=== PATIENT | male | born 1975 | race Caucasian/White ===

== ENCOUNTER 2016-09-10 09:59 | Emergency (ER) | payer OTHER ==
[~2016-09-10] VITALS: Ht 175.3 cm; Wt 90.1 kg
[2016-09-10 10:00] VITALS: BP 125/62; PULSE 64; RESP 20; TEMP 98.9; O2SAT 99
[2016-09-10] MEDS ORDERED: ROSU10 PO (10:27)
[2016-09-10] MEDS ORDERED: SODIUM CHLORIDE 0.9% FLUSH 10 ML FLUSH IVF PRN (11:15)
--- NOTE | 2016-09-10 11:20 | PD ---
HPI Chief Complaint: Complaint Time Seen by Provider: 11:15 Travel History International Travel<30 days: No Contact w/Intl Traveler<30days: No Traveled to known affect area: No History of Present Illness HPI 41 year old male presents to the emergency department for evaluation of left scrotal pain that started suddenly upon wakening this morning. The patient denies any history of testicular pain. Patient states the pain is slightly better with cupping the scrotum. He denies any fevers, chills. No chest pain or SOB. No abdominal pain. No nausea, vomiting, diarrhea. No urinary symptoms. Patient denies any penile discharge. He states he is not currently sexually active and denies any risk of STD. He reports no chronic medical problems and takes no prescribed medications. He is allergic to PCN. [facility] Past Medical History Anxiety: Yes High Cholesterol: Yes Respiratory: Yes (ASTHMA) Tetanus Vaccination: < 5 Years Social History Alcohol Use: No Tobacco Use: No Substance Use: No Allergies-Medications (Allergen,Severity, Reaction): Coded Allergies: Penicillin (Verified Allergy, Severe, Anaphylaxis, 09/10/16) Reported Meds & Prescriptions Reported Meds & Active Scripts Active Reported Crestor (Rosuvastatin Calcium) 10 Mg Tab 10 Mg PO DAILY Review of Systems Except as stated in HPI: all other systems reviewed are Neg Physical Exam Narrative GENERAL: Well-nourished, well-developed male patient, ambulatory. Afebrile. SKIN: Focused skin assessment warm/dry. HEAD: Normocephalic. Atraumatic. EYES: No scleral icterus. No injection or drainage. NECK: Supple, trachea midline. No JVD or lymphadenopathy. CARDIOVASCULAR: Regular rate and rhythm without murmurs, gallops, or rubs. RESPIRATORY: Breath sounds equal bilaterally. No accessory muscle use. Lung sounds are clear to auscultation throughout. GASTROINTESTINAL: Abdomen soft, non-tender, nondistended. MUSCULOSKELETAL: No cyanosis, or edema. BACK: Nontender without obvious deformity. No CVA tenderness. GENITOURINARY: Circumcised. Testes descended bilaterally. No lesions or erythema. No urethral discharge. exam was done with RNEmily, bedside. Patient has severe tenderness over left testicle. Exam is limited due to pain. Data Data Last Documented VS Vital Signs Date Time Temp Pulse Resp B/P Pulse Ox O2 Delivery O2 Flow Rate FiO2 09/10/16 10:00 98.9 64 20 125/62 99 Room Air Orders Urinalysis - C+S If Indicated (09/10/16 11:11) Gc And Chlamydia Pcr (09/10/16 11:11) Us Testicles W Doppler (09/10/16 11:11) Sodium Chloride 0.9% Flush (Ns Flush) (09/10/16 11:15) Iv Access Insert/Monitor (09/10/16 11:20) Ketorolac Inj (Toradol Inj) (09/10/16 11:30) Ondansetron Inj (Zofran Inj) (09/10/16 11:30) Labs Laboratory Tests Test 09/10/16 11:30 Urine Color YELLOW Urine Turbidity CLEAR Urine pH 8.0 Urine Specific [place] 1.011 Urine Protein NEG mg/dL Urine Glucose (UA) NEG mg/dL Urine Ketones NEG mg/dL Urine Occult Blood NEG Urine Nitrite NEG Urine Bilirubin NEG Urine Urobilinogen LESS THAN 2.0 MG/DL Urine Leukocyte Esterase NEG Urine RBC LESS THAN 1 /hpf Microscopic Urinalysis Comment CULT NOT INDICATED MDM Medical Decision Making Medical Screen Exam Complete: Yes Emergency Medical Condition: Yes Medical Record Reviewed: Yes Interpretation(s) Last Impressions Scrotum Ultrasound 09/10/16 1111 Signed Impressions: Service Date/Time: Saturday, September 10, 2016 11:57 - CONCLUSION: Tiny bilateral simple hydroceles and small varicoceles. Otherwise, unremarkable exam. Harsh Chavez Jr., MD Differential Diagnosis testicular torsion vs. epididymitis vs. hernia Narrative Course 41 year old male presents to the emergency department for evaluation of left scrotal pain that woke the patient up this morning. Exam reveals tenderness over left testicle. UA is ordered and pending. US of the testicles are ordered and pending. UA is negative for acute infection. US shows tiny bilateral simple hydroceles and small varicoceles. Otherwise, unremarkable exam. The patient is reassured. He appears well on reassessment and agrees for discharge. He'll be discharged with a prescription for ibuprofen. He verbalizes agreement and understanding. Diagnosis Primary Impression: Scrotal pain Referrals: Primary Care Physician call for appointment Patient Instructions: General Instructions, Testicle Pain (ED) Additional Instructions: Take ibuprofen as directed as needed with food for pain. Follow-up with your primary care physician. Return to the emergency department for any acute worsening of symptoms. Med/Other Pt SpecificInfo: No Change to Meds Scripts Ibuprofen 600 Mg [id number] Mg PO TID PRN (PAIN SCALE 1 TO 10) #21 TAB Ref 0 Prov:Sheree Paige 09/10/16 Disposition: 01 DISCHARGE HOME Condition: Stable Sheree Paige September 10, 2016 11:20
[2016-09-10] MEDS ORDERED: ONDANSETRON HCL 4 MG/2 ML VIAL IV PUSH ONE (11:30)
[2016-09-10] MEDS ORDERED: KETOROLAC TROMETHAMINE 30 MG/ML (IVP) VIAL IV PUSH ONE (11:30)
[2016-09-10 12:09] LABS: BLOOD, URINE NEG (NEG); GLUCOSE,URINE NEG (NEG); KETONE, URINE NEG (NEG); NITRITE,URINE NEG (NEG); URINE COLOR YELLOW (YELLW/STRAW)
[2016-09-10 12:21] LABS: COMMENT (UR) CULT NOT INDICATED; CULTURE IF INDICATED CULT NOT INDICATED
--- NOTE | 2016-09-10 12:53 | RADRPT ---
EXAM DATE/TIME: 09/10/2016 11:57 [facility] COMPARISON: No previous studies available for comparison. INDICATIONS : Left testicle pain. MEDICAL HISTORY : Asthma. Epididymitis. SURGICAL HISTORY : None. ENCOUNTER: Initial ACUITY: 1 day PAIN SCORE: 8/10 LOCATION: Bilateral testicle. MEASUREMENTS: RIGHT TESTICLE: 3.3 x 4.2 x 2.9cm LEFT TESTICLE: 4.4 x 3.4 x 2.4cm FINDINGS: RIGHT TESTICLE: Homogeneous echotexture without intra or extratesticular mass. Blood flow is symmetric and within no rmal limits. A tiny simple hydrocele. Tiny varicocele seen within the inferior portion of the inguina l canal. Epididymis is within normal limits. LEFT TESTICLE: Homogeneous echotexture without intra or extratesticular mass. Blood flow is symmetric and within no rmal limits. A tiny simple hydrocele. Tiny varicocele seen within the inferior portion of the inguina l canal. Epididymis is within normal limits. SCROTUM: Within normal limits. CONCLUSION: Tiny bilateral simple hydroceles and small varicoceles. Otherwise, unremarkable exam. Harsh Chavez Jr., MD on September 10, 2016 at 12:44 Board Certified Radiologist. This report was verified electronically.
[2016-09-10] MEDS ORDERED: IBUP-232 PO (13:03)
[2016-09-10 14:10] LABS: CHLAMYDIA PCR NOT DETECTED (NOT DETECT); NEISSERIA PCR NOT DETECTED (NOT DETECT)
== END 2016-09-10 13:28 | disposition home or self-care (01) ==
LOC: NEPC 09:59
DX: N50.82 Scrotal pain (principal); E78.00 Pure hypercholesterolemia, unspecified; Z87.09 Personal history of other diseases of the respiratory system; Z86.59 Personal history of other mental and behavioral disorders
CPT/HCPCS: 76870; 81001; 87491; 87591; 93975; 96374; 96375; 99284; J1885; J2405